=== PATIENT | male | born 1995 | race American Indian/Alaskan Native ===

== ENCOUNTER 2020-01-01 14:24 | Observation (INO) | payer OTHER ==
--- NOTE | 2020-01-01 16:01 | Emergency Department Report ---
HPI <SYED TAMEZ - Last Filed: 01/01/20 21:54> - [facility] HPI: Room 10 The patient is a 24-year-old male presenting with a chief complaint of altered mental status. The patient was reportedly found urinating on passing vehicles. The patient reportedly appeared altered and appropriate and belligerent. Patient currently is sleeping in the exam room and awakens to tactile stimuli to make eye contact but then falls back asleep <YONY SHRESTHA - Last Filed: 01/03/20 01:40> - General Chief Complaint: Altered Mental Status Time Seen by Provider: 01/01/20 15:28 ED Review of Systems ROS: Stated complaint: UNRESPONSIVE Other details as noted in HPI <SYED TAMEZ - Last Filed: 01/01/20 21:54> ROS: Stated complaint: UNRESPONSIVE Other details as noted in HPI <YONY SHRESTHA - Last Filed: 01/03/20 01:40> Physical Exam - Physical Exam Vital Signs: Vital Signs 01/01/20 01/01/20 01/01/20 15:15 15:30 15:45 Pulse Rate 84 86 85 Respiratory 16 13 10 L Rate Blood Pressure 121/57 112/55 116/60 O2 Sat by Pulse 100 96 95 Oximetry 01/01/20 01/01/20 01/01/20 16:16 16:30 16:46 Pulse Rate 92 H 82 82 Respiratory 13 11 L 10 L Rate Blood Pressure 116/52 115/52 116/60 O2 Sat by Pulse 98 97 98 Oximetry <SYED TAMEZ - Last Filed: 01/01/20 21:54> ED Course Vital Signs 01/01/20 01/01/20 01/01/20 15:15 15:30 15:45 Pulse Rate 84 86 85 Respiratory 16 13 10 L Rate Blood Pressure 121/57 112/55 116/60 O2 Sat by Pulse 100 96 95 Oximetry 01/01/20 01/01/20 01/01/20 16:16 16:30 16:46 Pulse Rate 92 H 82 82 Respiratory 13 11 L 10 L Rate Blood Pressure 116/52 115/52 116/60 O2 Sat by Pulse 98 97 98 Oximetry - Reevaluation(s) Reevaluation #2: 01/01/20 21:[address] Shrestha regarding patient's initial presentation. He is initially stuporous and in once he became more alert he has been belligerent and uncooperative during ED stay. Is not provided his name. He suspected that he is abusing a mind altering drug but he refuses to provide a urine for UDS evaluation. Patient is alcohol, aspirin, Tylenol are negative. He is noted to have elevated CK level. This was discussed with Dr. Barton first patient be admitted for rhabdomyolysis given elevation in CK. Ordered 3 L of normal saline to treat for elevated CK level. At this time patient is sleeping with normal vital signs on the monitor. He is easily arousable to tactile stimulation opens eyes and makes direct eye contact. He does not answer any questions including his name and falls back to sleep. <SYED TMAEZ - Last Filed: 01/01/20 21:54> - Reevaluation(s) Reevaluation #1: 01/01/20 19:38 Patient now awake. Patient denies ever urinating on passing car stating that it was a lie. Patient speaking clearly when he does answer questions but patient becomes irritated and refuses to answer further questions. Will continue to observe the patient. Patient was likely under the influence of a mind altering substance. Patient refuses to provide urine. When patient is ambulatory and clear he will be discharged <YONY SHRESTHA - Last Filed: 01/03/20 01:40> ED Medical Decision Making - Lab Data Result diagrams: 01/01/20 16:05 01/01/20 16:05 <SYED TAMEZ - Last Filed: 01/01/20 21:54> - Lab Data Result diagrams: 01/02/20 05:20 01/02/20 05:20 Laboratory Tests 01/01/20 01/01/20 01/01/20 16:05 16:05 16:05 WBC 8.7 RBC 4.42 Hgb 13.7 Hct 40.5 MCV 92 MCH 31 MCHC 34 RDW 12.9 L Plt Count 238 Lymph % (Auto) 23.4 Christian % (Auto) 14.5 H Eos % (Auto) 0.7 Baso % (Auto) 0.2 Lymph # (Auto) 2.0 Christian # (Auto) 1.3 H Eos # (Auto) 0.1 Baso # (Auto) 0.0 Seg Neutrophils % 61.2 Seg Neutrophils # 5.3 Sodium 138 Potassium 3.6 Chloride 102.3 Carbon Dioxide 25 Anion Gap 14 BUN 12 Creatinine 0.7 L Estimated GFR > 60 BUN/Creatinine Ratio 17 Glucose 99 Calcium 9.3 Total Bilirubin 0.90 AST 72 H ALT 28 Alkaline Phosphatase 90 Ammonia Total Creatine Kinase Troponin T Total Protein 7.4 Albumin 4.2 Albumin/Globulin Ratio 1.3 TSH Free T4 Salicylates < 0.3 L Acetaminophen Plasma/Serum Alcohol 01/01/20 01/01/20 01/01/20 16:05 16:05 16:05 WBC RBC Hgb Hct MCV MCH MCHC RDW Plt Count Lymph % (Auto) Christian % (Auto) Eos % (Auto) Baso % (Auto) Lymph # (Auto) Christian # (Auto) Eos # (Auto) Baso # (Auto) Seg Neutrophils % Seg Neutrophils # Sodium Potassium Chloride Carbon Dioxide Anion Gap BUN Creatinine Estimated GFR BUN/Creatinine Ratio Glucose Calcium Total Bilirubin AST ALT Alkaline Phosphatase Ammonia 29.0 Total Creatine Kinase Troponin T Total Protein Albumin Albumin/Globulin Ratio TSH Free T4 Salicylates Acetaminophen 5.0 L Plasma/Serum Alcohol < 0.01 01/01/20 01/01/20 01/01/20 16:05 16:05 16:05 WBC RBC Hgb Hct MCV MCH MCHC RDW Plt Count Lymph % (Auto) Christian % (Auto) Eos % (Auto) Baso % (Auto) Lymph # (Auto) Christian # (Auto) Eos # (Auto) Baso # (Auto) Seg Neutrophils % Seg Neutrophils # Sodium Potassium Chloride Carbon Dioxide Anion Gap BUN Creatinine Estimated GFR BUN/Creatinine Ratio Glucose Calcium Total Bilirubin AST ALT Alkaline Phosphatase Ammonia Total Creatine Kinase 2744 H Troponin T < 0.010 Total Protein Albumin Albumin/Globulin Ratio TSH 2.020 Free T4 1.55 H Salicylates Acetaminophen Plasma/Serum Alcohol - EKG Data -: EKG Interpreted by Ct EKG shows normal: sinus rhythm Rate: normal - EKG Data When compared to previous EKG there are: previous EKG unavailable Interpretation: normal EKG - Radiology Data Radiology results: report reviewed (CT head), image reviewed (CT head) Findings [facility] [address] [place] [address] Cat Scan Report Signed Patient: EMERGENCY,MEDICAL MR#: [id number] : 1995 Acct:[id number] Age/Sex: 24 / M ADM Date: 01/01/20 Loc: ED Attending Dr: Ordering Physician: YONY SHRESTHA MD Date of Service: 01/01/20 Procedure(s): CT head/brain wo con Accession Number(s): [id number] cc: YONY SHRESTHA MD CT head/brain wo con INDICATION / CLINICAL INFORMATION: 24 years Male; Altered mental status. TECHNIQUE: Routine CT head without contrast. All CT scans at this location are performed using CT dose reduction for ALARA by means of automated exposure control. COMPARISON: None. FINDINGS: BRAIN / INTRACRANIAL CONTENTS: The motion degrades image quality. However, the brain parenchyma appears to demonstrate appropriate attenuation. The ventricular system is within normal limits in size and configuration. There is no clear CT evidence of acute intracranial hemorrhage or significant mass effect. ORBITS: No significant abnormality of visualized orbits. SINUSES / MASTOIDS: No significant abnormality in the visualized paranasal sinuses or mastoid air cells. CRANIOCERVICAL JUNCTION: No significant abnormality. ADDITIONAL FINDINGS: None. IMPRESSION: 1. There is no clear CT evidence of acute intracranial process. Signer Name: Varghese Martin MD Signed: 01/01/2020 4:24 PM Workstation Name: [id number] Transcribed By: MR Dictated By: Varghese Martin MD Electronically Authenticated By: Varghese Martin MD Signed Date/Time: 01/01/201623 DD/ TD/TT: - Differential Diagnosis Altered mental status, intoxication, substance abuse <YONY SHRESTHA - Last Filed: 01/03/20 01:40> Critical care attestation.: If time is entered above; I have spent that time in minutes in the direct care of this critically ill patient, excluding procedure time. <SYED TAMEZ - Last Filed: 01/01/20 21:54> Critical care attestation.: If time is entered above; I have spent that time in minutes in the direct care of this critically ill patient, excluding procedure time. <YONY SHRESTHA - Last Filed: 01/03/20 01:40> ED Disposition Is pt being admited?: Yes Time of Disposition: 21:59 (Dr Pisano/hospitalist) <SYED TAMEZ - Last Filed: 01/01/20 21:54> Is pt being admited?: No Does the pt Need Aspirin: No <YONY SHRESTHA - Last Filed: 01/03/20 01:40> Clinical Impression: Altered mental status Rhabdomyolysis Qualifiers: Rhabdomyolysis type: non-traumatic Qualified Code(s): M62.82 - Rhabdomyolysis Disposition: -09 OP ADMIT IP TO THIS HOSP Condition: Stable
--- NOTE | 2020-01-01 16:29 | Cat Scan Report ---
CT head/brain wo con INDICATION / CLINICAL INFORMATION: 24 years Male; Altered mental status. TECHNIQUE: Routine CT head without contrast. All CT scans at this location are performed using CT dos e reduction for ALARA by means of automated exposure control. COMPARISON: None. FINDINGS: BRAIN / INTRACRANIAL CONTENTS: The motion degrades image quality. However, the brain parenchyma appea rs to demonstrate appropriate attenuation. The ventricular system is within normal limits in size and configuration. There is no clear CT evidence of acute intracranial hemorrhage or significant mass ef fect. ORBITS: No significant abnormality of visualized orbits. SINUSES / MASTOIDS: No significant abnormality in the visualized paranasal sinuses or mastoid air viky ls. CRANIOCERVICAL JUNCTION: No significant abnormality. ADDITIONAL FINDINGS: None. IMPRESSION: 1. There is no clear CT evidence of acute intracranial process. Signer Name: Varghese Martin MD Signed: 01/01/2020 4:24 PM Workstation Name: [id number]
[2020-01-01 16:41] LABS: Basophils % (Auto) 0.2 % (0.0-1.8); Eosinophils # (Auto) 0.1 K/mm3 (0.0-0.4); Eosinophils % (Auto) 0.7 % (0.0-4.3); Hematocrit 40.5 % (35.5-45.6); Hemoglobin 13.7 gm/dl (11.8-15.2); Lymphocytes % (Auto) 23.4 % (13.4-35.0); Mean Corpuscular HGB Conc 34 % (32-34); Mean Corpuscular Volume 92 fl (84-94); Monocytes # (Auto) 1.3 K/mm3 (0.0-0.8); Monocytes % (Auto) 14.5 % (0.0-7.3); Platelet Count 238 K/mm3 (140-440); Red Blood Count 4.42 M/mm3 (3.65-5.03); Red Cell Distribution Width 12.9 % (13.2-15.2)
[2020-01-01 16:55] LABS: Alanine Aminotransferase 28 units/L (7-56); Albumin 4.2 g/dL (3.9-5); Blood Urea Nitrogen 12 mg/dL (9-20); Calcium 9.3 mg/dL (8.4-10.2); Hemolysis Index 4
[2020-01-01 16:57] LABS: BUN/Creatinine Ratio 17
[2020-01-01 17:08] LABS: Free T4 (Free Thyroxine) 1.55 ng/dL (0.76-1.46)
[2020-01-01] MEDS ORDERED: SODIUM CHLORIDE 0.9% 1000 ML 1,000 ML IV ONE ×3 (21:53)
[2020-01-01] MEDS ORDERED: ACETAMINOPHEN 325 MG TAB PO PRN (22:24)
[2020-01-01] MEDS ORDERED: ONDANSETRON 4 MG/2 ML INJ IV PRN (22:24)
[2020-01-01] MEDS ORDERED: MAGNESIUM HYDROXIDE (MOM) ORAL LIQD UDC PO PRN (22:24)
[2020-01-01] MEDS ORDERED: MORPHINE 2 MG/1 ML INJ IV PRN (22:24)
[2020-01-01] MEDS ORDERED: SODIUM CHLORIDE 0.9% 1000 ML 1,000 ML IV SCH (22:30)
--- NOTE | 2020-01-01 22:32 | History and Physical Report ---
History of Present Illness Date of examination: 01/01/20 Date of admission: 01/01/2020 Chief complaint: Altered Mental Status History of present illness: 24-year-old male who was seen in the emergency room today with altered mental status. Patient was brought into the emergency room after being found on the street urinating and passing by vehicles. Most of the history was gotten from the emergency room staff as patient is unable to provide any history. He appe ared lethargic and confused. According to ER staff he was found to be uncooperative upon arrival in the emergency room. He was belligerent, not providing any history, not providing any urine sample, and unable to identify himself. Work-up in the emergency room today's labs showed significantly elevated creatinine kinase. CT scan of the head was negative. Patient is being admitted for altered mental status and rhabdomyolysis. Past History Past Medical History: other (Not obtainable) Past Surgical History: Other (Not obtainable) Social history: other (Not obtainable) Family history: other (Not obtainable) Medications and Allergies Allergies Allergy/AdvReac Type Severity Reaction Status Date / Time haloperidol Allergy Seizure Verified 01/01/20 22:52 Active Meds: Active Medications Acetaminophen (Tylenol) 650 mg PO Q4H PRN PRN Reason: Pain MILD(1-3)/Fever >100.5/LR Enoxaparin Sodium (Enoxaparin) 40 mg SUB-Q QDAY@2200 ANTONIO; Protocol Sodium Chloride (Nacl 0.9% 1000 Ml) 1,000 mls @ 999 mls/hr IV BOLUS ONE Stop: 01/01/20 22:53 Sodium Chloride (Nacl 0.9% 1000 Ml) 1,000 mls @ 999 mls/hr IV BOLUS ONE Stop: 01/01/20 22:53 Sodium Chloride (Nacl 0.9% 1000 Ml) 1,000 mls @ 999 mls/hr IV BOLUS ONE Stop: 01/01/20 22:53 Sodium Chloride (Nacl 0.9% 1000 Ml) 1,000 mls @ 150 mls/hr IV DIRECT ANTONIO Magnesium Hydroxide (Milk Of Magnesia) 30 ml PO Q4H PRN PRN Reason: Constipation Morphine Sulfate (Morphine) 2 mg IV Q4H PRN PRN Reason: Pain, Moderate (4-6) Ondansetron HCl (Zofran) 4 mg IV Q8H PRN PRN Reason: Nausea And Vomiting Sodium Chloride (Sodium Chloride Flush Syringe 10 Ml) 10 ml IV BID ANTONIO Sodium Chloride (Sodium Chloride Flush Syringe 10 Ml) 10 ml IV PRN PRN PRN Reason: LINE FLUSH Review of Systems ROS unobtainable: due to mental status Exam - Constitutional Vitals: Temp Pulse Resp BP Pulse Ox 98.1 F 84 20 114/51 99 01/01/20 19:55 01/01/20 19:55 01/01/20 19:55 01/01/20 19:55 01/01/20 19:55 General appearance: Present: no acute distress, well-nourished - EENT Eyes: Present: PERRL, EOM intact. Absent: scleral icterus ENT: hearing intact, clear oral mucosa, dentition normal - Neck Neck: Present: supple, normal ROM - Respiratory Respiratory effort: normal Respiratory: bilateral: CTA - Cardiovascular Rhythm: regular Heart Sounds: Present: S1 & S2. Absent: gallop, systolic murmur, diastolic murmur, rub - Extremities Extremities: no ischemia, pulses intact, pulses symmetrical, No edema, Full ROM Peripheral Pulses: within normal limits - Abdominal General gastrointestinal: Present: soft, non-tender, non-distended, normal bowel sounds. Absent: mass - Integumentary Integumentary: Present: clear, warm, dry. Absent: rash - Musculoskeletal Musculoskeletal: strength equal bilaterally - Psychiatric Psychiatric: cooperative, other (Confused) - Neurologic Neurologic: CNII-XII intact, no focal deficits, moves all extremities HEART Score - HEART Score Troponin: Troponin T < 0.010 ng/mL (0.00-0.029) 01/01/20 16:05 Results - Labs CBC & Chem 7: 01/01/20 16:05 01/01/20 16:05 Labs: Abnormal lab results 01/01/20 01/01/20 01/01/20 Range/Units 16:05 16:05 16:05 RDW 12.9 L (13.2-15.2) % [place] % (Auto) 14.5 H (0.0-7.3) % [place] # (Auto) 1.3 H (0.0-0.8) K/mm3 Creatinine 0.7 L (0.8-1.3) mg/dL AST 72 H (5-40) units/L Total Creatine Kinase (55-170) units/L Free T4 (0.76-1.46) ng/dL Salicylates < 0.3 L (2.8-20.0) mg/dL Acetaminophen (10.0-30.0) ug/mL 01/01/20 01/01/20 01/01/20 Range/Units 16:05 16:05 16:05 RDW (13.2-15.2) % [place] % (Auto) (0.0-7.3) % [place] # (Auto) (0.0-0.8) K/mm3 Creatinine (0.8-1.3) mg/dL AST (5-40) units/L Total Creatine Kinase 2744 H (55-170) units/L Free T4 1.55 H (0.76-1.46) ng/dL Salicylates (2.8-20.0) mg/dL Acetaminophen 5.0 L (10.0-30.0) ug/mL Assessment and Plan - Patient Problems (1) Altered mental status Current Visit: Yes Status: Acute Plan to address problem: Etiology unclear. Patient has not been unable to provide any urine for UDS. Not sure if he has taken any illicit drugs. We will continue to monitor mental status. (2) Rhabdomyolysis Current Visit: Yes Status: Acute Plan to address problem: Patient placed on IV fluid. Will monitor creatinine kinase level and also monitor renal function. (3) DVT prophylaxis Current Visit: Yes Status: Acute Plan to address problem: Patient placed on subcutaneous Lovenox. (4) Full code status Current Visit: Yes Status: Acute
[2020-01-02 05:44] LABS: Bilirubin,Urine NEG (Negative); Blood,Urine NEG (Negative); Color,Urine Straw (Yellow); Protein,Urine <15 mg/dL mg/dL (Negative); Urobilinogen,Urine < 2.0 mg/dL (<2.0)
[2020-01-02 05:45] LABS: Basophils % (Auto) 0.6 % (0.0-1.8); Eosinophils # (Auto) 0.1 K/mm3 (0.0-0.4); Eosinophils % (Auto) 2.6 % (0.0-4.3); Hematocrit 41.6 % (35.5-45.6); Hemoglobin 13.8 gm/dl (11.8-15.2); Lymphocytes # (Auto) 1.8 K/mm3 (1.2-5.4); Lymphocytes % (Auto) 31.8 % (13.4-35.0); Mean Corpuscular HGB Conc 33 % (32-34); Mean Corpuscular Volume 92 fl (84-94); Monocytes # (Auto) 0.8 K/mm3 (0.0-0.8); Monocytes % (Auto) 13.5 % (0.0-7.3); Platelet Count 260 K/mm3 (140-440); Red Blood Count 4.53 M/mm3 (3.65-5.03); Red Cell Distribution Width 13.3 % (13.2-15.2)
[2020-01-02 05:54] LABS: Amphetamine Screen,Urine Negative; Benzodiazepines Screen,Urine Negative; Cocaine Screen,Urine Negative; Methadone Screen,Urine Negative; Opiate Screen,Urine Negative
[2020-01-02 05:54] LABS: INR 1.15 (0.87-1.13)
[2020-01-02 06:00] LABS: Blood Urea Nitrogen 11 mg/dL (9-20); Calcium 8.8 mg/dL (8.4-10.2); Hemolysis Index 71
[2020-01-02 06:05] LABS: BUN/Creatinine Ratio 18
[2020-01-02 06:14] LABS: Cannabinoid Screen,Urine Positive
--- NOTE | 2020-01-02 10:36 | Consultation ---
History of Present Illness - Reason for Consult Consult date: 01/02/20 Reason for consult: AMS - History of Present Psychiatric Illness Rey Du is a 24y/o male patient who presented to the ER after being found urinating on vehicles, belligerent and confused. I attempted to interview with patient today, he is lying in bed somnolent. The patient could not be aroused enough to engage in the interview. PAST PSYCHIATRIC HISTORY: Could not obtain PAST MEDICAL HISTORY: None reported Family Psychiatric History: None reported or documented SOCIAL HISTORY Unable to obtain REVIEW OF SYSTEMS Unable to obtain MENTAL STATUS EXAMINATION Unable to complete Assessment and Plan (1) Altered Mental Status Current Visit: Yes Status: Acute (2) Substance Use Disorder Treatment plan Sitter: defer to primary Medical: pet primary Disposition: TBD Will follow. Thank you for this consult. Medications and Allergies Allergies Allergy/AdvReac Type Severity Reaction Status Date / Time haloperidol Allergy Seizure Verified 01/01/20 22:52 Active Meds: Active Medications Acetaminophen (Tylenol) 650 mg PO Q4H PRN PRN Reason: Pain MILD(1-3)/Fever >100.5/LR Enoxaparin Sodium (Enoxaparin) 40 mg SUB-Q QDAY@2200 ANTONIO; Protocol Sodium Chloride (Nacl 0.9% 1000 Ml) 1,000 mls @ 150 mls/hr IV DIRECT ANTONIO Last Admin: 01/02/20 01:44 Dose: 150 mls/hr Documented by: Magnesium Hydroxide (Milk Of Magnesia) 30 ml PO Q4H PRN PRN Reason: Constipation Morphine Sulfate (Morphine) 2 mg IV Q4H PRN PRN Reason: Pain, Moderate (4-6) Ondansetron HCl (Zofran) 4 mg IV Q8H PRN PRN Reason: Nausea And Vomiting Sodium Chloride (Sodium Chloride Flush Syringe 10 Ml) 10 ml IV BID ANTONIO Sodium Chloride (Sodium Chloride Flush Syringe 10 Ml) 10 ml IV PRN PRN PRN Reason: LINE FLUSH Mental Status Exam - Vital signs Last Vital Signs Temp 97.7 F 01/02/20 08:00 Pulse 73 01/02/20 08:00 Resp 18 01/02/20 08:00 BP 102/62 01/02/20 08:00 Pulse Ox 100 01/02/20 02:03 Results Result Diagrams: 01/02/20 05:20 01/02/20 05:20 Abnormal lab results 01/01/20 01/01/20 01/01/20 Range/Units 16:05 16:05 16:05 RDW 12.9 L (13.2-15.2) % [place] % (Auto) 14.5 H (0.0-7.3) % [place] # (Auto) 1.3 H (0.0-0.8) K/mm3 INR (0.87-1.13) Creatinine 0.7 L (0.8-1.3) mg/dL Glucose (75-100) mg/dL AST 72 H (5-40) units/L Total Creatine Kinase (55-170) units/L Free T4 (0.76-1.46) ng/dL Salicylates < 0.3 L (2.8-20.0) mg/dL Acetaminophen (10.0-30.0) ug/mL 01/01/20 01/01/20 01/01/20 Range/Units 16:05 16:05 16:05 RDW (13.2-15.2) % [place] % (Auto) (0.0-7.3) % [place] # (Auto) (0.0-0.8) K/mm3 INR (0.87-1.13) Creatinine (0.8-1.3) mg/dL Glucose (75-100) mg/dL AST (5-40) units/L Total Creatine Kinase 2744 H (55-170) units/L Free T4 1.55 H (0.76-1.46) ng/dL Salicylates (2.8-20.0) mg/dL Acetaminophen 5.0 L (10.0-30.0) ug/mL 01/02/20 01/02/20 01/02/20 Range/Units 05:20 05:20 05:20 RDW (13.2-15.2) % [place] % (Auto) 13.5 H (0.0-7.3) % [place] # (Auto) (0.0-0.8) K/mm3 INR 1.15 H (0.87-1.13) Creatinine 0.6 L (0.8-1.3) mg/dL Glucose 133 H (75-100) mg/dL AST (5-40) units/L Total Creatine Kinase (55-170) units/L Free T4 (0.76-1.46) ng/dL Salicylates (2.8-20.0) mg/dL Acetaminophen (10.0-30.0) ug/mL 01/02/20 Range/Units 05:20 RDW (13.2-15.2) % [place] % (Auto) (0.0-7.3) % [place] # (Auto) (0.0-0.8) K/mm3 INR (0.87-1.13) Creatinine (0.8-1.3) mg/dL Glucose (75-100) mg/dL AST (5-40) units/L Total Creatine Kinase 1414 H (55-170) units/L Free T4 (0.76-1.46) ng/dL Salicylates (2.8-20.0) mg/dL Acetaminophen (10.0-30.0) ug/mL All other labs normal.
--- NOTE | 2020-01-02 18:36 | Discharge Summary ---
Providers - Providers Date of Admission: 01/01/20 22:22 Date of discharge: 01/02/20 Attending physician: VIOLET BATEMAN Primary care physician: ASSISTED LIVING COORDINATOR Hospitalization Condition: Stable Hospital course: 24-year-old male who was seen in the emergency room today with altered mental status. Patient was brought into the emergency room after being found on the street urinating and passing by vehicles. Most of the history was gotten from the emergency room staff as patient is unable to provide any history. He appeared lethargic and confused. According to ER staff he was found to be uncooperative upon arrival in the emergency room. He was belligerent, not providing any history, not providing any urine sample, and unable to identify himself. Work-up in the emergency room today's labs showed significantly elevated creatinine kinase. CT scan of the head was negative. Patient is being admitted for altered mental status and rhabdomyolysis. During my examination patient is alert and oriented x4 patient is near wash basin washing himself and makes an appropriate conversation. (1) acute encephalopathy Current Visit: Yes Status: Acute Plan to address problem: Resolved Probable psychosis' stable for discharge (2) Rhabdomyolysis Current Visit: Yes Status: Acute Plan to address problem: Patient placed on IV fluid. Will monitor creatinine kinase level and also monit or renal function. Creatinine is mid thousands Plenty of oral fluid intake Disposition: DC- TO HOME OR SELFCARE - Discharge Diagnoses (1) Rhabdomyolysis Status: Acute Qualifiers: Rhabdomyolysis type: non-traumatic Qualified Code(s): M62.82 - Rhabdomyolysis Comment: Plenty of oral fluids (2) Acute encephalopathy Status: Acute Comment: Resolved Possible psychosis Core Measure Documentation - Palliative Care Palliative Care/ Comfort Measures: Not Applicable - Core Measures Any of the following diagnoses?: none Exam - Constitutional Vitals: Temp Pulse Resp BP Pulse Ox 97.7 F 73 18 102/62 100 01/02/20 08:00 01/02/20 08:00 01/02/20 08:00 01/02/20 08:00 01/02/20 02:03 General appearance: Present: no acute distress, well-nourished - EENT Eyes: Present: PERRL ENT: hearing intact, clear oral mucosa - Neck Neck: Present: supple, normal ROM - Respiratory Respiratory effort: normal Respiratory: bilateral: CTA - Cardiovascular Heart Sounds: Present: S1 & S2. Absent: rub, click - Extremities Extremities: pulses symmetrical, No edema Peripheral Pulses: within normal limits - Abdominal General gastrointestinal: Present: soft, non-tender, non-distended, normal bowel sounds Male genitourinary: Present: normal - Integumentary Integumentary: Present: clear, warm, dry - Musculoskeletal Musculoskeletal: gait normal, strength equal bilaterally - Psychiatric Psychiatric: appropriate mood/affect, intact judgment & insight - Neurologic Neurologic: CNII-XII intact, moves all extremities Plan Activity: no restrictions Diet: regular Follow up with: PRIMARY CARE, [Primary Care Provider] - 3-5 Days
[2020-01-02 18:37] VITALS: BP 111/50
[2020-01-02] MEDS ORDERED: ENOXAPARIN 40 MG/0.4 ML INJ SUB-Q SCH (22:00)
== END 2020-01-02 19:16 | disposition home or self-care (01) ==
LOC: ED 14:24 → 3A 22:22 → 4A 22:50
PROVIDERS: ADMIT Internal Medicine Geriatric Medicine; ATTEND Internal Medicine
DX: M62.82 Rhabdomyolysis (principal); R41.82 Altered mental status, unspecified; G93.40 Encephalopathy, unspecified; F19.10 Other psychoactive substance abuse, uncomplicated; F17.210 Nicotine dependence, cigarettes, uncomplicated; Z79.899 Other long term (current) drug therapy
CPT/HCPCS: 36415; 70450; 80048; 80053; 80307; 81001; 82140; 82550; 84439; 84443; 84484; 85025; 85610; 93005; 96360; 96361; 99285; 99406; G0378; J7030; 80320; G0480